=== PATIENT | male | born 1990 | race Two or more races ===

== ENCOUNTER 2023-11-16 10:35 | Emergency (ER) | payer OTHER, MEDICAID ==
[~2023-11-16] VITALS: Ht 188 cm; Wt 95.3 kg
[2023-11-16 11:03] VITALS: BP 120/80; TEMP 98; O2SAT 97
[2023-11-16] MEDS ORDERED: OLANZAPINE 10 MG VIAL IM ONE (11:15)
[2023-11-16] MEDS: OLANZAPINE 10 MG VIAL IM ONE (11:22)
[2023-11-16] MEDS: LORAZEPAM INJ 2 MG/ML VIAL IM ONE (12:02)
[2023-11-16] MEDS ORDERED: LORAZEPAM INJ 2 MG/ML VIAL ONE (12:02)
== END 2023-11-16 11:04 ==
LOC: ER 10:52
DX: F19.10 Other psychoactive substance abuse, uncomplicated (principal); R45.1 Restlessness and agitation; F31.9 Bipolar disorder, unspecified; F20.9 Schizophrenia, unspecified; Z60.2 Problems related to living alone
CPT/HCPCS: 99283; 96372; J2060; J3490

== ENCOUNTER 2024-09-02 09:47 | Emergency (ER) | payer OTHER ==
[~2024-09-02] VITALS: Ht 190.5 cm; Wt 108.9 kg
[2024-09-02] MEDS ORDERED: ONDA4TAB5 PO (11:08)
[2024-09-02] MEDS ORDERED: ONDANSETRON 4 MG TAB.RAPDIS ONE (11:13)
[2024-09-02] MEDS ORDERED: BUPRENORPHINE HCL 8 MG TAB.SUBL SL ONE (11:13)
[2024-09-02] MEDS: ONDANSETRON 4 MG TAB.RAPDIS SL ONE (11:17)
[2024-09-02] MEDS: BUPRENORPHINE HCL 8 MG TAB.SUBL SL ONE (11:21)
[2024-09-02 11:32] VITALS: BP 122/97; TEMP 98; O2SAT 97
== END 2024-09-02 11:33 ==
LOC: ER 09:55
DX: F11.23 Opioid dependence with withdrawal (principal); R00.2 Palpitations; R11.2 Nausea with vomiting, unspecified; R41.9 Unspecified symptoms and signs involving cognitive functions and awareness
CPT/HCPCS: 99283; Q0162